=== PATIENT | female | born 1975 | race Caucasian/White ===

== ENCOUNTER 2019-12-03 22:10 | Emergency (ER) | payer SELFPAY ==
[2019-12-03 22:47] VITALS: BP 151/95
--- NOTE | 2019-12-03 23:49 | ER Document Report ---
HPI - HPI Patient complains to provider of: Urostomy bag leaking Time Seen by Provider: 12/03/19 23:39 Pain Level: Denies Context: 44-year-old female history of colon cancer that metastasized into her bladder presents emergency room with a leaking colostomy bag. Patient states she relocated here 3 weeks ago has run out of her urostomy wafers. The pharmacy that ordered them for her gave her colostomy wafers instead of urostomy wafers. Patient states she spoke with the pharmacy yesterday they are going to reorder them tomorrow with the help of them getting here either Wednesday or Wednesday. She is come to the emergency room tonight hoping to get 1 or 2 urostomy wafers to last her until she can get the shipment from the pharmacy. She has no local primary care physician at this time. She offers no other concerns or complaints. Associated Symptoms: None Exacerbated by: Movement Relieved by: Remaining still Similar symptoms previously: No Recently seen / treated by doctor: No - ROS Systems Reviewed and Negative: Yes All other systems reviewed and negative - CONSTITUTIONAL Constitutional: DENIES: Fever - GASTROINTESTINAL Gastrointestinal: DENIES: Abdominal Pain, Nausea - DERM Skin Color: Normal Skin Problems: None Past Medical History - General Information source: Patient - Social History Smoking Status: Never Smoker Frequency of alcohol use: None Drug Abuse: None Family History: Hypertension Patient has homicidal ideation: No Vertical Provider Document - CONSTITUTIONAL Agree With Documented VS: Yes Exam Limitations: No Limitations General Appearance: No Apparent Distress - INFECTION CONTROL TRAVEL OUTSIDE OF THE [place] IN LAST 30 DAYS: No - HEENT HEENT: Atraumatic, Normocephalic - NECK Neck: Normal Inspection, Supple - RESPIRATORY Respiratory: Breath Sounds Normal, No Respiratory Distress - CARDIOVASCULAR Cardiovascular: Regular Rate, Regular Rhythm, No Murmur - GI/ABDOMEN Gastrointestinal: Abdomen Soft Notes: Patient with with urostomy bag noted. Mild leaking around the bag is noted. Patient has a washcloth in place catching the leakage. No erythema, nontender to the site. No signs of infection. - MUSCULOSKELETAL/EXTREMETIES Musculoskeletal/Extremeties: FROM - NEURO Level of Consciousness: Awake, Alert Motor/Sensory: No Motor Deficit, No Sensory Deficit Course - Re-evaluation Re-evalutation: 12/03/19 23:47 Call was placed to the nursing blast furnace supervisor who will bring the patient urostomy wafers. Patient to follow-up with a primary care physician and order her urostomy wafers as planned. Patient was given strict return to the emergency room guidelines. Return for any new or worsening symptoms. All questions were answered. Patient verbalized understanding and agrees with plan of care. - Vital Signs Vital signs: Temp Pulse Resp BP Pulse Ox 98 F 87 16 151/95 H 100 12/03/19 22:44 12/03/19 22:44 12/03/19 22:44 12/03/19 22:44 12/03/19 22:44 Discharge - Discharge Clinical Impression: Complication of urostomy Condition: Stable Disposition: HOME, SELF-CARE Additional Instructions: Change her bags as scheduled. Follow-up with a primary care physician as needed. Return to emergency room for any new or worsening symptoms. Referrals: WHITNEY AIKEN MD [ACTIVE STAFF] - Follow up as needed
== END 2019-12-04 00:05 | disposition home or self-care (01) ==
LOC: ER 22:10
DX: Z93.6 Other artificial openings of urinary tract status (principal)
CPT/HCPCS: 99281